=== PATIENT | male | born 1975 | race Caucasian/White ===

== ENCOUNTER 2018-04-08 04:02 | Emergency (ER) | payer OTHER ==
[~2018-04-08] VITALS: Ht 180.3 cm; Wt 110.3 kg
[2018-04-08 04:17] LABS: URINE BILIRUBIN NEGATIVE (Negative); URINE BLOOD TRACE (Negative); URINE CLARITY CLEAR; URINE COLOR YELLOW; URINE GLUCOSE-RANDOM* NEGATIVE (Negative); URINE KETONES NEGATIVE (Negative); URINE LEUKOCYTES-REFLEX NEGATIVE (Negative); URINE NITRITE-REFLEX NEGATIVE (Negative); URINE PROTEIN (DIPSTICK) NEGATIVE (Negative); URINE SPECIFIC GRAVITY >= 1.030 (1.005-1.035); URINE UROBILINOGEN 0.2 E.U./dl (0.2-1.0)
[2018-04-08] MEDS ORDERED: LISINOPRIL-HCT1 EAC1 PO (04:18)
[2018-04-08 04:36] LABS: ABSOLUTE NEUTROPHILS 4.9 thou/uL (1.4-8.2); BASOPHILS 1.5 % (0.0-2.0); HEMATOCRIT 42.2 % (42.0-52.0); HEMOGLOBIN 14.3 gm/dL (14.0-18.0); LYMPHOCYTES 24.4 % (24.0-44.0); MCH 29.9 pg (26.0-34.0); MCHC 33.8 g/dL (28.0-37.0); MCV 88.3 fL (80.0-100.0); PLATELET COUNT 264 thou/uL (150-400); POLYS 61.1 % (36.0-66.0); RBC 4.78 mil/uL (4.50-6.00); WBC 8.1 thou/uL (4.0-11.0)
[2018-04-08 04:44] LABS: POTASSIUM 3.4 mmol/L (3.5-5.1)
[2018-04-08] MEDS ORDERED: AUGMENTIN 500-1 EACH PO (07:36)
[2018-04-08] MEDS ORDERED: NORCO 5-325 TA1 EACH PO (07:36)
[2018-04-08] MEDS ORDERED: TESSALON PERLE100 MG PO (07:38)
[2018-04-08 08:03] VITALS: BP 101/62
== END 2018-04-08 08:04 | disposition home or self-care (01) ==
LOC: ER 04:02
PROVIDERS: Student in an Organized Health Care Education/Training Program
DX: S22.32XA Fracture of one rib, left side, initial encounter for closed fracture (principal); J18.9 Pneumonia, unspecified organism; R10.9 Unspecified abdominal pain; X58.XXXA Exposure to other specified factors, initial encounter; Y93.89 Activity, other specified; Y92.89 Other specified places as the place of occurrence of the external cause; Y99.8 Other external cause status